=== PATIENT | female | born 1945 | race Caucasian/White ===

== ENCOUNTER 2019-04-24 10:32 | Day surgery (SDC) | payer OTHER, MEDICARE ==
[~2019-04-24] VITALS: Ht 170.2 cm; Wt 67.1 kg
[~2019-04-24 10:32] MED LIST: METO50ER PO; MONT10T PO; PROAIR RESPICL90 MCG INH; SPIRIVA RESPIMAT4 G1 INH; Zestril40 MG PO; Zovirax800 MG PO
[2019-04-24] MEDS ORDERED: INCRUSE ELLI62.5 MCG (11:55)
[2019-04-24] MEDS ORDERED: TRAM50 (11:58)
--- NOTE | 2019-04-24 12:07 | NUR ---
04/24/19 1207 ALEXANDER AGUILAR 1 IV ATTEMPT BY YOSELIN VEIN BLEW 2 IV ATTEMPT BY YOSELIN IN WRIST SUCCESSFUL
== END 2019-04-24 13:41 | disposition home or self-care (01) ==
LOC: ORSCSDS 10:32
PROVIDERS: Internal Medicine Gastroenterology
PROC: 0DJD8ZZ Inspection of Lower Intestinal Tract, Via Natural or Artificial Opening Endoscopic (ICD-10-PCS; principal; 2019-04-24 12:30)
DX: Z12.11 Encounter for screening for malignant neoplasm of colon (principal); Z86.010 Personal history of colon polyps; K57.30 Diverticulosis of large intestine without perforation or abscess without bleeding; K64.8 Other hemorrhoids; K64.4 Residual hemorrhoidal skin tags; F17.210 Nicotine dependence, cigarettes, uncomplicated; I10 Essential (primary) hypertension; J44.9 Chronic obstructive pulmonary disease, unspecified; K74.60 Unspecified cirrhosis of liver; Z79.899 Other long term (current) drug therapy
CPT/HCPCS: J2704; J7120

== ENCOUNTER 2023-03-15 13:12 | Emergency (ER) | payer OTHER ==
[~2023-03-15] VITALS: Ht 170.2 cm; Wt 59.0 kg
[~2023-03-15 13:12] MED LIST changes: +INCRUSE ELLI62.5 MCG; +TRAM50
[2023-03-15 14:04] LABS: BASOPHILS ABSOLUTE AUTO 0.01 K/mm3 (0.00-0.23); BASOPHILS PERCENT AUTO 0 % (0-2); EOSINOPHILS ABSOLUTE AUTO 0.08 K/mm3 (0.00-0.68); EOSINOPHILS PERCENT AUTO 2 % (0-6); Hematocrit 33.2 % (33.0-51.0); Hemoglobin 10.9 g/dL (11.5-16.0); IMMATURE GRAN ABSOLUTE AUTO 0.01 K/mm3 (0.00-0.10); IMMATURE GRAN PERCENT AUTO 0 % (0-1); LYMPHOCYTES ABSOLUTE AUTO 1.33 K/mm3 (0.84-5.20); LYMPHOCYTES PERCENT AUTO 29 % (21-46); MONOCYTES ABSOLUTE AUTO 0.39 K/mm3 (0.16-1.47); MONOCYTES PERCENT AUTO 9 % (4-13); Mean Corpuscular HGB 34.4 pg (26.0-34.0); Mean Corpuscular HGB Conc 32.8 g/dL (31.5-36.5); Mean Corpuscular Volume 105 fL (80-100); Mean Platelet Volume 10.5 fL (9.1-12.4); NEUTROPHILS ABSOLUTE AUTO 2.71 K/mm3 (1.96-9.15); NEUTROPHILS PERCENT AUTO 60 % (41-73); Platelet Count 158 K/mm3 (150-400); RDW Coefficient Variation 12.4 % (11.7-14.2); RDW Standard Deviation 48.5 fL (35.1-46.3); Red Blood Cell Count 3.17 M/mm3 (3.80-5.20); White Blood Cell Count 4.53 K/mm3 (4.00-11.30)
[2023-03-15 14:30] LABS: Albumin, Blood 3.8 g/dL (3.4-5.0); Albumin/Globulin Ratio 0.9 (0.8-1.8); Bilirubin, Total 0.4 mg/dL (0.1-1.0); Bun/Creatinine Ratio 33.6 (12.0-20.0); Calcium, Blood 9.9 mg/dL (8.5-10.1); Creatinine, Blood 1.19 mg/dL (0.40-1.00); Globulin, Blood 4.2 g/dL (2.2-4.0); Potassium, Blood 4.6 mmol/L (3.5-5.5)
[2023-03-15 17:03] VITALS: BP 138/78
[2023-03-15 19:13] LABS: Source, Urine Straight Cath
[2023-03-15 19:21] LABS: Appearance, Urine Clear (Clear); Bilirubin, Urine Neg (Neg); Blood, Urine Neg (Neg); Color, Urine Yellow (P-Yellow); Glucose Qualitative, Urine Neg (Neg); Ketones, Urine Neg (Neg); Leukocyte Esterase, Urine Neg (Neg); Nitrite, Urine Neg (Neg); Protein, Urine Neg (Neg); Specific Gravity, Urine 1.015 (1.003-1.022); Urobilinogen, Urine NORM (Normal)
== END 2023-03-15 20:25 | disposition home or self-care (01) ==
LOC: ER 13:12
PROVIDERS: Emergency Medicine; Physician Assistant
DX: R53.1 Weakness (principal); I12.9 Hypertensive chronic kidney disease with stage 1 through stage 4 chronic kidney disease, or unspecified chronic kidney disease; N18.9 Chronic kidney disease, unspecified; Z79.899 Other long term (current) drug therapy; Z88.8 Allergy status to other drugs, medicaments and biological substances
CPT/HCPCS: 70450; 71046; 80053; 81003; 84484; 85025; 93005; 93010; 99285-25

== ENCOUNTER 2023-03-26 19:27 | Inpatient (IN) | payer OTHER ==
[~2023-03-26] VITALS: Ht 170.2 cm; Wt 60.2 kg
[2023-03-26 20:04] LABS: BASOPHILS PERCENT AUTO 0 % (0-2); EOSINOPHILS PERCENT AUTO 0 % (0-6); Hematocrit 32.3 % (33.0-51.0); Hemoglobin 10.5 g/dL (11.5-16.0); IMMATURE GRAN ABSOLUTE AUTO 0.01 K/mm3 (0.00-0.10); IMMATURE GRAN PERCENT AUTO 0 % (0-1); LYMPHOCYTES ABSOLUTE AUTO 1.06 K/mm3 (0.84-5.20); LYMPHOCYTES PERCENT AUTO 21 % (21-46); MONOCYTES ABSOLUTE AUTO 0.44 K/mm3 (0.16-1.47); MONOCYTES PERCENT AUTO 9 % (4-13); Mean Corpuscular HGB 33.4 pg (26.0-34.0); Mean Corpuscular HGB Conc 32.5 g/dL (31.5-36.5); Mean Corpuscular Volume 103 fL (80-100); Mean Platelet Volume 11.8 fL (9.1-12.4); NEUTROPHILS ABSOLUTE AUTO 3.47 K/mm3 (1.96-9.15); NEUTROPHILS PERCENT AUTO 70 % (41-73); Platelet Count 124 K/mm3 (150-400); RDW Coefficient Variation 12.7 % (11.7-14.2); Red Blood Cell Count 3.14 M/mm3 (3.80-5.20); White Blood Cell Count 4.98 K/mm3 (4.00-11.30)
[2023-03-26 20:17] LABS: Albumin, Blood 3.2 g/dL (3.4-5.0); Albumin/Globulin Ratio 0.9 (0.8-1.8); Bilirubin, Total 0.3 mg/dL (0.1-1.0); Bun/Creatinine Ratio 23.9 (12.0-20.0); Calcium, Blood 8.5 mg/dL (8.5-10.1); Creatinine, Blood 1.8 mg/dL (0.40-1.00); Globulin, Blood 3.7 g/dL (2.2-4.0); Potassium, Blood 3.8 mmol/L (3.5-5.5); Total Protein, Blood 6.9 g/dL (6.4-8.2)
[2023-03-27] VITALS (17 sets, daily range): BP systolic 97–131; BP diastolic 61–100
[2023-03-27 00:29] LABS: Magnesium, Blood 1.4 mg/dL (1.6-2.4)
[2023-03-27 00:31] LABS: Thyroid Stimulating Hormone 1.43 uIU/mL (0.360-4.800)
[2023-03-27 03:41] LABS: BASOPHILS PERCENT AUTO 0 % (0-2); EOSINOPHILS PERCENT AUTO 0 % (0-6); Hematocrit 29.7 % (33.0-51.0); IMMATURE GRAN PERCENT AUTO 0 % (0-1); LYMPHOCYTES ABSOLUTE AUTO 0.91 K/mm3 (0.84-5.20); LYMPHOCYTES PERCENT AUTO 25 % (21-46); MONOCYTES ABSOLUTE AUTO 0.29 K/mm3 (0.16-1.47); MONOCYTES PERCENT AUTO 8 % (4-13); Mean Corpuscular HGB 34.2 pg (26.0-34.0); Mean Corpuscular HGB Conc 33.7 g/dL (31.5-36.5); Mean Corpuscular Volume 102 fL (80-100); Mean Platelet Volume 11.5 fL (9.1-12.4); NEUTROPHILS ABSOLUTE AUTO 2.43 K/mm3 (1.96-9.15); NEUTROPHILS PERCENT AUTO 67 % (41-73); Platelet Count 106 K/mm3 (150-400); RDW Coefficient Variation 12.4 % (11.7-14.2); RDW Standard Deviation 46.3 fL (35.1-46.3); Red Blood Cell Count 2.92 M/mm3 (3.80-5.20); White Blood Cell Count 3.63 K/mm3 (4.00-11.30)
[2023-03-27 03:55] LABS: Anti-Xa UFH, PHA Monitoring <0.10 IU/mL; International Normalized Ratio 1.11; Prothrombin Time Results 11.6 Sec (9.7-11.5)
[2023-03-27 06:05] LABS: Albumin, Blood 3.2 g/dL (3.4-5.0); Albumin/Globulin Ratio 0.8 (0.8-1.8); Bilirubin, Total 0.4 mg/dL (0.1-1.0); Bun/Creatinine Ratio 28.9 (12.0-20.0); Calcium, Blood 8.2 mg/dL (8.5-10.1); Creatinine, Blood 1.42 mg/dL (0.40-1.00); Globulin, Blood 3.9 g/dL (2.2-4.0); Potassium, Blood 3.5 mmol/L (3.5-5.5); Total Protein, Blood 7.1 g/dL (6.4-8.2)
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
--- NOTE | 2023-03-27 10:02 | NUR ---
AM NOTE: PATIENT ALERT AND ORIENTED. NEEDS REINFORCEMENT AT TIMES AND VERY TALKATIVE. DENEIS PAIN BUT DISCUSSES HOW WEAK SHE IS AND JUST NOT FEELING HERSELF. FOLLOWING COMMANDS. PERRLA. DENIES N/T. DENTURES AT BEDSIDE. ABLE TO TURN SELF IN BED. TELE SHOWING AFIB WITH HR 80-120'S CARDIZEM TITRATED OFF AND PO METORPOLOL GIVEN THIS AM. BP STABLE. DENIES CHEST PAIN/PRESSURE. NO EDEMA NOTED. HEPARIN GTT INFUSING PER EMAR. NS INFUSING PER EMAR. ON 3L NASAL CANNULA SATING MID-HIGH 90'S LUNGS SOUNDING CLEAR AND DIM WITH FINE CRACKLES IN BASES. DENIES SOB. OCCASIONAL COUGH. DENIES ABDOMINAL PAIN/NAUSEA. EATING WNL. PUREWICK IN PLACE, ATTENDS IN PLACE. BOWEL TONES PRESENT. CALL LIGHT IN REACH. BED ALARM IN PLACE. DENIES NEEDS AT THIS TIME.
[2023-03-27] MEDS ORDERED: LISI20 PO (10:48)
[2023-03-27] MEDS ORDERED: MONT10T PO (10:49)
[2023-03-27] MEDS ORDERED: LEVSOD25 PO (10:49)
[2023-03-27 14:17] LABS: Adenovirus F 40/41 Not Detected (NOT DETECT); Astrovirus Not Detected (NOT DETECT); Campylobacter Sp Not Detected (NOT DETECT); Cryptosporidium Not Detected (NOT DETECT); Cyclospora Cayetanensis Not Detected (NOT DETECT); E. Coli O157 Not Detected (NOT DETECT); Entamoeba Histolytica Not Detected (NOT DETECT); Enteroaggregative E. coli-EAEC Not Detected (NOT DETECT); Enteropathogenic E. coli-EPEC Not Detected (NOT DETECT); Enterotoxigenic E. coli-ETEC Not Detected (NOT DETECT); Giardia Lamblia Not Detected (NOT DETECT); Norovirus GI/GII Not Detected (NOT DETECT); Plesiomonas Shigelloides Not Detected (NOT DETECT); Rotavirus A Not Detected (NOT DETECT); Salmonella Sp Not Detected (NOT DETECT); Sapovirus Not Detected (NOT DETECT); Shiga Toxin-prod E. coli-STEC Not Detected (NOT DETECT); Shigella/Enteroin E. coli-EIEC Not Detected (NOT DETECT); Vibrio Cholerae Not Detected (NOT DETECT); Vibrio Sp Not Detected (NOT DETECT); Yersinia Enterocolitica Not Detected (NOT DETECT)
--- NOTE | 2023-03-27 16:15 | NUR ---
DAUGHTER IN LAW BENITEZ CALLED EARLIER THIS AM. MED REC UPDATED AND DR. HAWKINS NOTIFIED. SON AMARJIT AND SARI IN TO VISIT THIS AFTERNOON. THIS RN PROVIDED UPDATED. PATIENT ON 1L NASAL CANNULA AT THIS TIME SATING MID 90'S. BP STABLE. REMAINS IN AFIB WITH HR 70-110'S. NORMAL SALINE CONTINUES TO INFUSE PER EMAR. PATIENT HAS VERY POOR APPPEATITE. DRINKING SMALL AMOUNTS. 600ML URINE OUTPUT FROM PUREWICK AT THIS TIME. PATIENT STATES "I AM STARTING TO FEEL ALOT BETTER". OVERALL VERY WEAK. DENIES NEEDS AT THIS TIME. PATIENT RESTING IN BED LISTENING TO MUSIC.
--- NOTE | 2023-03-27 16:33 | NUR ---
PATIENT HR SUSTAINING 110-130'S. DENIES SYMPTOMS. BP STABLE READIN 130/95(106). DR. HAWKINS CALLED AND UPDATED. ORDERS TO GIVE 100MG PO METOPROLOL TARTRATE NOW AND HOLD 2100 DOSE OF METOPROLOL TARTRATE. ORDERS IN PLACE.
--- NOTE | 2023-03-27 21:30 | NUR ---
UPDATE: THIS RN NOTIFIED BY TELE (JAYNE) THAT PT's HR HAS BEEN SUSTAINING IN THE 120-130 RANGE AND INTERMITTENLY TOUCHING 150'S. THIS RN TO BED SIDE FOR FULL SET OF VITALS, PT DENIES PALPITATIONS, DIZZINESS, OR SOB. SBP RANGED IN THE 110-120'S. SPOKE WITH DR. YUAN AT [facility] WITH ORDERS TO RESUME CARDIAZEM gtt AT 5MG/HR THEN TO TITRATE HAS NEEDED. SEE EMAR FOR ADMINISTRATION DETAILS.
[2023-03-28] VITALS (12 sets, daily range): BP systolic 108–124; BP diastolic 76–98
[2023-03-28 04:29] LABS: Hematocrit 26.8 % (33.0-51.0); Hemoglobin 9.1 g/dL (11.5-16.0); Mean Corpuscular HGB 33.8 pg (26.0-34.0); Mean Corpuscular Volume 100 fL (80-100); Mean Platelet Volume 11.6 fL (9.1-12.4); Platelet Count 107 K/mm3 (150-400); RDW Coefficient Variation 12.5 % (11.7-14.2); RDW Standard Deviation 45.6 fL (35.1-46.3); Red Blood Cell Count 2.69 M/mm3 (3.80-5.20); White Blood Cell Count 1.82 K/mm3 (4.00-11.30)
[2023-03-28 04:50] LABS: Bun/Creatinine Ratio 30.7 (12.0-20.0); Creatinine, Blood 0.91 mg/dL (0.40-1.00); Potassium, Blood 3.8 mmol/L (3.5-5.5)
--- NOTE | 2023-03-28 05:26 | NUR ---
SHIFT SUMMARY A/Ox3-4 AND COOPERATIVE WITH CARE. ABLE TO MAKE MOST OF HER NEEDS KNOWN AND ABLE TO CALL APPROPRIATELY. CARDIAC, REMAINS IN AFIB RHYTHM WITH HR RANGING 90-110's. EARLY IN THE SHIFT, HR WAS SUSTAINING 120-140's, BUT PT DENIES ANY SYMPTOMS OF DIZZINESS, SOB, OR PALPITATIONS. DR. YUAN NOTIFIED WITH NEW ORDERS GIVEN. SEE UPDATE NOTE FOR DETAILS. CARDIZEM gtt HAS BEEN RUNNING INTERMITTENT T/O THE NIGHT, SEE EMASR FOR DETAILS. SBP HAS BEEN STABLE RANGING 90-120's WITH NO COMPLAINTS OF CP OR PRESSURE. RESPIRATORY, MAINTAINS SPO2 >94% ON RA. DENIES SOB WHILE AT REST, BUT DYSPNEA NOTED WITH MINIMAL EXERTION. GI/, PUREWICK IN PLACE AND DRAINING YELLOW URINE TO SUCTION. NO BM FOR THIS SHIFT. CONTINUES TO BE VERY WEAK T/O, BUT DOES REPORT "I'M GETTING MY STRENGTH BACK". Q2HR REPOSITIONING PERFORMED TO KEEP OFF OF BONY PROMINENCES. ASSESSED PT FOR RISKS OF ANY IGNITION SOURCES WELL BEHAVIORS FOR INCREASED RISKS OF FIRE DANGER. PT EDUCATED ON COMMON SOURCES OF IGNITION WELL NEED TO KEEP A SAFE ENVIRONMENT. PT VOICED UNDERSTANDING. NO NEW ORDERS AT THIS TIME, WILL REPORT TO ONCOMING RN. SHERRIE ACOSTA OF THIS NOTE.
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
--- NOTE | 2023-03-28 14:31 | NUR ---
APS RESPONDED TO MESSAGE AND INFORMATION WAS RELAYED TO THEM REGARDING PT'S STATEMENTS. PRIMARY RN AWARE WELL.
--- NOTE | 2023-03-28 17:39 | NUR ---
Shift Summary Pt alert, oriented x4; calm and cooperative with care, Pt on bedrest, q2 turn. Pt reporting pain "everywhere" medicated with tylenol with positive results. Spo2 >90% on ra. Tele afib 120-130 this am, medciated with scheduled metoprolol, down to 90-110's, but trending back up to 120-130 this evening, notified , new order for one time dose. No other acute chagnes noted. Will continue to monitor.
[2023-03-29] VITALS (19 sets, daily range): BP systolic 94–150; BP diastolic 56–97
--- NOTE | 2023-03-29 02:16 | NUR ---
UPDATE: ~2340 YESTERDAY PM, PT'S HR NOTED TO BE CLIMBING BACK INTO THE 120-130'S AND SUSTAINING FOR SOME TIME. PT DENIES ANY PALPITATIONS, SOB, OR DIZZINESS. SBP WAS STABLE RANGING 100-120'S. DR. YUAN NOTIFIED OF OF CHANGE IN CONDITION WITH NEW ORDERS TO ADMINISTER LOPRESSOR 50MG PO. DOSE GIVEN ORDERED FOR MINIMAL EFFECT. HR TRENDED DOWN INTO THE 110-120'S UNITL 0115 THIS AM WHEN HR REVERTED BACK INTO THE 120-130'S AND OCCASIONALLY TOUCHING 140'S. AGAIN PT DENIED ANY SYMPTOMS. DR. YUAN NOTIFIED AGAIN WITH NEW ORDERS TO RESUME CARDIAZEM gtt @5MG/HR. THEN TO TITRATE PER EMAR ORDERS.
--- NOTE | 2023-03-29 04:58 | NUR ---
SHIFT SUMMARY A/Ox3-4 AND COOPERATIVE WITH CARE. ABLE TO MAKE MOST OF HER NEEDS KNOWN AND ABLE TO CALL APPROPRIATELY. VERY TALKATIVE AND PLEASANT WITH CARE. CARDIAC, REMAINS IN AFIB RHYTHM WITH HR RANGING 80-110's. TOWARDS THE START OF THE SHIFT, PT's HR WAS SUSTAINING 120-140's. PT CONTINUES TO DENY ANY SYMPTOMS OF DIZZINESS, SOB, OR PALPITATIONS. NIGHT RESIDENT DR. YUAN NOTIFIED WITH NEW ORDERS GIVEN. SEE THIS SHIFT's UPDATE NOTE FOR DETAILS. CARDIZE gtt HAS BEEN RUNNING INTERMITTENT T/O THE NIGHT, SEE EMAR FOR ADMINISTRATION DETAILS. SBP HAS BEEN STABLE RANGING 100-110 S WITH NO COMPLAINTS OF CP OR PRESSURE. RESPIRATORY, MAINTAINS SPO2 >94% ON RA. DENIES SOB WHILE AT REST, BUT CONTINUES TO REPORT DYSPNEA WITH MINIMAL EXERTION. GI/, PUREWICK IN PLACE AND DRAINING YELLOW URINE TO SUCTION. AGAIN NO BM FOR THIS SHIFT. CONTINUES TO BE VERY WEAK T/O, BUT HAS BEEN ABLE TO MOVE AROUND MORE IN BED WITHOUT ASSISTANCE FROM STAFF. Q2HR REPOSITIONING PERFORMED TO KEEP PRESSURE OFF OF BONY PROMINENCES. ASSESSED PT FOR RISKS OF ANY IGNITION SOURCES WELL BEHAVIORS FOR INCREASED RISKS OF FIRE DANGER. PT EDUCATED ON COMMON SOURCES OF IGNITION WELL NEED TO KEEP A SAFE ENVIRONMENT. PT VOICED UNDERSTANDING. NO NEW ORDERS AT THIS TIME, WILL REPORT TO ONCOMING RN. SHERRIE ACOSTA OF THIS NOTE.
--- NOTE | 2023-03-29 09:07 | NUR ---
ASSUMPTION OF CARE ASSUMED CARE AT APPROX 0700. PT AOX3-4, PLEASANT, COOPERATIVE W/ CARE AND RECEPTIVE TO EDUCATION. REPORTS FEELING DROWSY THIS MORNING, EASILY AROUSABLE TO VERBAL STIMULI. VSS. BP STABLE, HR 90'S-120'S. INTERMITTENT EPISODES OF INCREASED HR, 130'S-140'S. NONSUSTAINING, PT ASYMPTOMATIC. CARDIZEM GTT STOPPED EARLIER THIS MORNING. PO METOPROLOL ADMINISTERED PER EMAR. ECHOCARDIOGRAM TO BE COMPLETED TODAY. WILL CONTINUE TO MONITOR. CURRENTLY ON ROOM AIR, SATS >95%. PUREWICK IN PLACE, DRAINING DIONI URINE TO SUCTION. ATTENDS IN PLACE, IS C/D/I. PT REPORTS AMBULATING INFREQUENTLY AT HOME W/ FWW, W/ INCREASED WEAKNESS. IS CURRENTLY BEDREST, Q2 REPOSITIONING IN PLACE. PT REPORTS DECREASED APPETITE THIS MORNING, DECLINED BREAKFAST TRAY. CALL LIGHT IN REACH.
--- NOTE | 2023-03-29 11:52 | NUR ---
UPDATE PT CURRENTLY SITTING IN CHAIR AFTER WORKING W/ THERAPY. HR INCREASE TO 150'S, NONSUSTAINING. CURRENTLY 130'S-140'S. PT ASYMPTOMATIC. CONTACTED . TO PUT IN ORDER FOR RATE CONTROL.
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
[2023-03-30] VITALS (8 sets, daily range): BP systolic 105–123; BP diastolic 69–92
--- NOTE | 2023-03-30 00:36 | NUR ---
UPDATE: EARLY IN THE SHIFT ~0, PT'S HR NOTED TO BE SUSTAINING IN THE 120-130 RANGE WITH INTERMITTENT JUMPS TO 140'S AND EVEN 150'S. PT CONTINUES TO BE ASYMPTOMATIC DENYING PAPITATIONS, CP, OR DIZZINESSS. NIGHT RESIDENT DR. YUAN NOTIFIED TO WHICH HE CAME TO BEDSIDE TO EVALUATE PT. VERBAL ORDERS GIVEN TO RESTART CARDIZEM gtt @ 5MG/HR AND THEN TITRATE VIA EMAR ORDERS. SEE EMAR FOR ADMINISTRATION DETAILS. PT RESPONDED WELL TO MEDICATION WITH HR SOON RETURNING IN THE 80-110 RANGE. CARDIZEM gtt TITRATED OFF PER EMAR ORDERS.
--- NOTE | 2023-03-30 05:21 | NUR ---
SHIFT SUMMARY A/Ox3-4 AND COOPERATIVE WITH CARE. ABLE TO MAKE MOST OF HER NEEDS KNOWN AND ABLE TO CALL APPROPRIATELY. VERY TALKATIVE AND PLEASANT WITH CARE. CARDIAC, REMAINS IN AFIB RHYTHM WITH HR RANGING 90-120's. ~2230 YESTERDAY PM PT's HR STARTED TO SUSTAIN IN THE 120-140's AND OCCASIONALLY TOUCHING THE 150 ARNULFO. PT CONTINUES TO DENY ANY SYMPTOMS OF DIZZINESS, SOB, OR PALPITATIONS. NIGHT RESIDENT DR. YUAN NOTIFIED WITH NEW ORDERS GIVEN. SEE THIS SHIFT's UPDATE NOTE FOR DETAILS. CARDIZEM gtt WAS STARTED TO ASSIST WITH RATE CONTROL PER MD ORDERS, BUT WAS ABLE TO BE TITRATED OFF. SEE EMAR FOR ADMINISTRATION DETAILS. SBP HAS BEEN STABLE RANGING 110-120 S WITH NO COMPLAINTS OF CP OR PRESSURE. RESPIRATORY, MAINTAINS SPO2 >94% ON RA. PER DAYSHIFT, WAS ABLE TO GET UP INTO CHAIR FOR SOME TIME WITHOUT BECOMING TOO SOB. GI/, PUREWICK IN PLACE AND DRAINING YELLOW URINE TO SUCTION. NO BM FOR THIS SHIFT AND REPORTS I DON'T KNOW WHEN THE LAST TIME I'VE HAD A BM . PT/OT ON BOARD TO HELP WITH DECONDITIONING, CONTINUED Q2HR REPOSITIONING PERFORMED TO KEEP PRESSURE OFF OF BONY PROMINENCES. ASSESSED PT FOR RISKS OF ANY IGNITION SOURCES WELL BEHAVIORS FOR INCREASED RISKS OF FIRE DANGER. PT EDUCATED ON COMMON SOURCES OF IGNITION WELL NEED TO KEEP A SAFE ENVIRONMENT. PT VOICED UNDERSTANDING. NO NEW ORDERS AT THIS TIME, WILL REPORT TO ONCOMING RN. SHERRIE ACOSTA OF THIS NOTE.
--- NOTE | 2023-03-30 08:39 | NUR ---
ASSUMPTION OF CARE ASSUMED CARE AT APPROX 0700. PT AOX3-4, FORGETFUL AT TIMES. PLEASANT AND TALKATIVE. COOPERATIVE W/ CARE AND RECEPTIVE TO EDUCATION AT TIMES. VSS. BP STABLE. TELEMETRY SHOWING AFIB 90'S-110'S. INTERMITTENT EPISODES OF INCREASED HR, 120'S-130'S, ESPECIALLY W/ MOVEMENT. PT MOSTLY ASYMPTOMATIC. NO REPORT OF CHEST PAIN/PRESSURE. REPORTS INCREASED WEAKNESS T/O THIS ADMISSION. INCREASED DOSE OF PO METOPROLOL GIVEN PER EMAR. WILL CONTINUE TO MONITOR T/O SHIFT. ON ROOM AIR, SATS >92%. REPORTS 4/10 CONSTANT COCCYX PAIN THIS MORNING, MOBILITY ENCOURAGED TOLERATED, PT DECLINED SITTING IN A CHAIR THIS MORNING FOR BREAKFAST. FREQUENT REPOSITIONING IN PLACE. WILL MANAGE PER EMAR PRN. PHYSICAL THERAPY AND OCCUPATIONAL THERAPY ON CASE, 1P ASSIST FWW AND GB TO CHAIR. INCONTINENT OF URINE, PUREWICK AND ATTENDS IN PLACE. NO BM, DOCUSATE ADMINISTERED PER EMAR THIS MORNING. PT CURRENTLY RECEIVING A BEDBATH. CALL LIGHT IN REACH.
--- NOTE | 2023-03-30 14:19 | NUR ---
THIS RN NOTIFIED BY STRAWHAT BLOCKING OPERATOR THAT THE PT'S HR IS TRENDING HIGHER 110'S-130'S, INCREASE HIGH THE 150'S INTERMITTENTLY. PT ASYMPTOMATIC OF INCREASE, IS CURRENTLY RESTING IN BED. CURRENT BP 105/69, MAP OF 79. MD [place] NOTIFIED OF TREND, TO PUT IN NEW ORDERS.
--- NOTE | 2023-03-30 16:31 | NUR ---
SHIFT SUMMARY NO ACUTE CHANGES SINCE ASSUMPTION OF CARE. PT REMAINED AOX3-4. VSS. HR BEGAN TRENDING UP, 110'S-120'S, INTERMITTENT EPISODES OF INCREASE TO 140'S-150'S. MD NOTIFIED. ORDER FOR PO CARDIZEM PLACED BY . ADMINISTERED PER EMAR. TELEMETRY CURRENTLY SHOWING AFIB 90'S-110'S. BP SOFT, SBP 100'S-110'S. MAP GREATER THAN 65. PT ASYMPTOMATIC. REMAINS ON RM AIR, SATS >90%. PT WORKED W/ PHYSICAL THERAPY THIS MORNING, 1P ASSIST W/ FWW. TOLERATED SITTING IN CHAIR FOR ABOUT AN HOUR. VOIDING, INCONTINENT. PUREWICK AND ATTENDS IN PLACE, CHANGED PRN TO KEEP C/D/I. NO BM THIS SHIFT. PT IS CURRENTLY RESTING COMFORTABLY IN BED. CALL LIGHT IN REACH. WILL REPORT TO ONCOMING RN.
--- NOTE | 2023-03-30 17:09 | NUR ---
UPDATE THIS RN NOTIFIED THAT THE PT'S HR IS BEGINNING TO TREND DOWN, HR CURRENTLY 70'S-80'S.
--- NOTE | 2023-03-30 20:48 | NUR ---
ASSUMPTION OF CASRE PATIENT IS ALERT AND ORIENTED X 3-4. ABLE TO MAKE NEEDS KNOWN, IS TALKING IN FULL SENTANCES FREQUENTLY WITHOUT SOB OR INCREASED WOB. HR IS IN THE 80-110 AT THIS TIME, 2100 METOPROLOL JUST GIVEN. PATIENT IS COOPERATIVE WITH CARE, DENIES CHEST PAIN PRESSURE OR SOB AT REST AT THIS TIME. VSS. NO CONCERNS NOTED AT THIS TIME.
[2023-03-31] VITALS (10 sets, daily range): BP systolic 97–124; BP diastolic 70–98
--- NOTE | 2023-03-31 03:27 | NUR ---
EOS: VSS PATIENT NEEDED 1 X DOSE OF 30MG CARDIZEM DUE TO INCREASING ME UP TO 150'S AND DECREASING BP. PATIENT BP IMPROVED WITH CONTROLLED RATE CURRENLTY 75 ON RA SPO2 >95%. PATIENT COOPERATIVE, PLEASANT, A/O X3 FOLLOWS COMMANDS APPROPRIATELY. AFEBRILE. NO CONCERNS FROM THIS RN.
--- NOTE | 2023-03-31 09:23 | NUR ---
BLOOD PRESSURE TAKEN, READING 86/73 (79). DR. HAWKINS CALLED BY THIS RN, PLAN FOR 25O NS BOLUS AND TO RECHECK BLOOD PRESSURE IN ONE HOUR. WILL UPDATE DR. HAWKINS POST BOLUS.
--- NOTE | 2023-03-31 10:08 | NUR ---
DR. HAWKINS CALLED TO UPDATE POST 250 ML NORMAL SALINE BOLUS. BP 104/78 (86). HR 60-70'S. ORDERS TO CHANGE PO METOPROLOL SUCCINATE TO 100MG BID AND GIVE THIS AM. ORDERS IN PLACE.
--- NOTE | 2023-03-31 12:35 | NUR ---
SPOKE WITH DAUGHTER IN LAW EMMANUEL [phone] AND PROVIDED UPDATE. PATIENT SITTING UP IN CHAIR EATING LUNCH AT THIS TIME.
[2023-03-31 13:21] LABS: Hematocrit 31.6 % (33.0-51.0); Hemoglobin 10.6 g/dL (11.5-16.0); Mean Corpuscular HGB 34.2 pg (26.0-34.0); Mean Corpuscular HGB Conc 33.5 g/dL (31.5-36.5); Mean Corpuscular Volume 102 fL (80-100); Mean Platelet Volume 12.2 fL (9.1-12.4); NRBC ABSOLUTE 0.02 K/mm3 (0.00-0.02); NRBC Auto 0.2 /100 WBC (0.0-0.2); Platelet Count 198 K/mm3 (150-400); RDW Standard Deviation 48.3 fL (35.1-46.3); White Blood Cell Count 10.47 K/mm3 (4.00-11.30)
[2023-03-31 13:40] LABS: Bun/Creatinine Ratio 39.8 (12.0-20.0); Calcium, Blood 8.5 mg/dL (8.5-10.1); Creatinine, Blood 0.88 mg/dL (0.40-1.00); Potassium, Blood 4.2 mmol/L (3.5-5.5)
--- NOTE | 2023-03-31 17:57 | NUR ---
SHIFT SUMMARY: NO ACUTE CHANGES THIS SHIFT. PATIENT HR REMAINS CONTROLLED WITH PO CARDIZEM. BP REMAINS STABLE. CONTINUES TO DENY CHEST PRESSURE/PAIN/PALPITATIONS. UP WITH PT/OT. FAMILY UPDATED TODAY VIA TELEPHONE. EATING WNL. DENIES OVERALL PAIN. Q2 TURNING AND NEEDED. DENIES NEEDS AT THIS TIME. CALL LIGHT IN REACH.
[2023-04-01] VITALS (8 sets, daily range): BP systolic 90–111; BP diastolic 61–83
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
--- NOTE | 2023-04-01 17:47 | NUR ---
NO ACUTE CHANGES T/O THE SHIFT, PT'S HR REMAINS 110-130s WITH DILT AND METOP INCREASED TODAY. BPs HAVE REMAINED 90-110 SYSTOLIC. PT GIVEN HEATING PAD FOR BACK PAIN, HAS DECLINED TYLENOL ALL DAY. PT IS ABLE TO USE CALL LIGHT, CALL LIGHT IN REACH. WILL CONTINUE TO MONITOR AND GIVE REPORT TO ONCOMING SHIFT RN.
[2023-04-02 04:04] VITALS: BP 115/80
--- NOTE | 2023-04-02 04:25 | NUR ---
SHIFT SUMMARY PT A&Ox4, CALLS AND COMMUNICATES NEEDS APPROPRIATELY. HAS ODD STATEMENTS AND IS SLIGHTLY FORGETFUL AT TIMES. BP STABLE, AFIB 80-110's AT REST, BRIEFLY 130's WITH ACTIVITY, DENIES CP/PRESSURE. SpO2> 92% RA, DENIES SOB. SBA TO BSC. PT HAD BOTH CONTINENT AND INCONTINENT EPISODES OF BOTH URINE AND BOWEL. ATTENDS AND PUREWICK IN PLACE. Q2 TURNS PROVIDED. NO OTHER EVENTS, WILL REPORT TO ONCOMING RN.
[2023-04-02 05:45] VITALS: BP 141/95
[2023-04-02 09:41] VITALS: BP 113/78
[2023-04-02 11:47] VITALS: BP 103/72
--- NOTE | 2023-04-02 12:12 | NUR ---
ASSUMED CARE OF PT AT 0700 THIS AM. PER REPORT, BETTER HR CONTROL OVERNIGHT. NO ACUTE EVENTS. PT AWAKE AND ALERT THIS AM, NO COMPLAINTS. DR CURIEL AT BEDSIDE, DISCUSSED PLAN OF CARE. PT IS NOW MEDICAL TELE STATUS. UPDATED FAMILY OVER THE PHONE THIS AM. PLAN IS FOR PT TO DC TO REHAB PENDING BED AVAILIBILITY/INSURANCE AUTH. PT IS ABLE TO USE CALL LIGHT FOR NEEDS, CALL LIGHT IN REACH. TM.
--- NOTE | 2023-04-02 18:12 | NUR ---
SHIFT SUMMARY PATIENT TRANSFERED UP FROM PCU VIA BED. PATIENT ALERT AND INTERACTIVE. EASILY IRRITABLE ABOUT SITUATION BUT COOPERATIVE WITH CARE. PATIENT DENIES ANY CHEST PAIN. OCCASIONAL MOIST COUGH. PATIENT IS AWARE THAT PLAN IS FOR HER TO GO TO REHAB WHEN AVAILABLE.
[2023-04-02 20:49] VITALS: BP 111/81
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
[2023-04-03 04:48] VITALS: BP 111/81
[2023-04-03 05:16] LABS: BASOPHILS ABSOLUTE AUTO 0.01 K/mm3 (0.00-0.23); BASOPHILS PERCENT AUTO 0 % (0-2); EOSINOPHILS ABSOLUTE AUTO 0.15 K/mm3 (0.00-0.68); EOSINOPHILS PERCENT AUTO 2 % (0-6); Hematocrit 31.1 % (33.0-51.0); Hemoglobin 10.4 g/dL (11.5-16.0); IMMATURE GRAN ABSOLUTE AUTO 0.05 K/mm3 (0.00-0.10); IMMATURE GRAN PERCENT AUTO 1 % (0-1); LYMPHOCYTES ABSOLUTE AUTO 1.05 K/mm3 (0.84-5.20); LYMPHOCYTES PERCENT AUTO 14 % (21-46); MONOCYTES ABSOLUTE AUTO 0.71 K/mm3 (0.16-1.47); MONOCYTES PERCENT AUTO 10 % (4-13); Mean Corpuscular HGB 34.1 pg (26.0-34.0); Mean Corpuscular HGB Conc 33.4 g/dL (31.5-36.5); Mean Corpuscular Volume 102 fL (80-100); Mean Platelet Volume 11.9 fL (9.1-12.4); NEUTROPHILS ABSOLUTE AUTO 5.51 K/mm3 (1.96-9.15); NEUTROPHILS PERCENT AUTO 74 % (41-73); Platelet Count 183 K/mm3 (150-400); RDW Coefficient Variation 13.2 % (11.7-14.2); RDW Standard Deviation 48.9 fL (35.1-46.3); Red Blood Cell Count 3.05 M/mm3 (3.80-5.20); White Blood Cell Count 7.48 K/mm3 (4.00-11.30)
[2023-04-03 05:55] LABS: Calcium, Blood 8.8 mg/dL (8.5-10.1); Creatinine, Blood 0.93 mg/dL (0.40-1.00); Magnesium, Blood 1.9 mg/dL (1.6-2.4)
[2023-04-03 08:31] VITALS: BP 115/84
[2023-04-03 16:29] VITALS: BP 110/86
--- NOTE | 2023-04-03 18:30 | NUR ---
SHIFT SUMMARY PATIENT ALERT AND INTERACTIVE WITH CARE. PATIENT AWARE THAT SHE IS GOING TO REHAB WHEN BED AVAILABLE. HR CONTINUES TO BE IRREGULAR, RANGING FROM 100'S TO 150. PROVIDER AWARE OF HR. PATIENT MEDICATED WITH IV METOPROLOL WITH NO CHANGE. PATIENT TAKING ORAL MEDICATIONS FOR HR. FAMILY IN TO SEE PATIENT. SON HERE FROM OUT OF TOWN TO TRY TO HELP WITH NURSING HOME PLAN. PATIENT DENIES ANY CHEST PAIN OR SHORTNESS OF BREATH WITH HR. VSS
[2023-04-03 19:33] VITALS: BP 97/76
[2023-04-04] MEDS ORDERED: SPIRIVA RESPIMAT4 G2 INH (00:19)
[2023-04-04] MEDS ORDERED: LISINOPRIL-HCT1 EACH PO (00:20)
[2023-04-04] MEDS ORDERED: NEURONTIN300 MG PO (00:20)
[2023-04-04 00:38] VITALS: BP 108/69
--- NOTE | 2023-04-04 01:09 | NUR ---
assumed care OF PT. A/O VSS C/O CHRONIC SHOULDER AND HIP PAIN. PT MEDICATED PER AUG. 2099 MEDS GIVEN LATE AT 2230, INITALLY TOPOROL MEDS HELD FOR SOFT BP AND LOW HEART RATE BUT AT MID NIGHT FORMATION FRACTURING OPERATOR NOTIFIED THAT HEART RATE WAS IN THE 130S SO TOPOROL WAS GIVEN AND CARDIZEM WILL BE GIVEN LATE. BP WNL AND O2 97 RA, PT HAS NO S/S OF DISTRESS OR COMPLICATIONS
[2023-04-04 02:44] VITALS: BP 103/85
[2023-04-04 08:25] VITALS: BP 108/90
--- NOTE | 2023-04-04 16:29 | NUR ---
SHIFT SUMMARY: PT A&O X4. OCCASIONALLY FORGETFUL OF HOW TO USE CALL LIGHT AND ROOM TELEPHONE. PT PLEASANT AND COOPERATIVE WITH CARE. RECEIVED SEVERAL CALLS FROM TELE THIS SHIFT STATING PULSE HAS BEEN TRENDING IN 150'S-160'S. CARDIAC MEDICATIONS PROVIDED. PT HAS CHRONIC SHOULDER AND TAILBONE PAIN. SPOKE WITH PT SON FOR AN UPDATE THIS SHIFT. PLAN FOR PT TO RECEIVE COVID SWAB TOMORROW AND IF NEGATIVE TRANSFER TO SNF. CALL LIGHT IN REACH. BED IN LOWEST POSITION. WILL CONTINUE TO MONITOR.
[2023-04-04 16:39] VITALS: BP 100/79
[2023-04-04 20:42] VITALS: BP 97/77
[2023-04-05 04:37] VITALS: BP 118/89
[2023-04-05 05:32] LABS: BASOPHILS PERCENT AUTO 0 % (0-2); EOSINOPHILS ABSOLUTE AUTO 0.18 K/mm3 (0.00-0.68); EOSINOPHILS PERCENT AUTO 3 % (0-6); Hematocrit 30.3 % (33.0-51.0); IMMATURE GRAN ABSOLUTE AUTO 0.02 K/mm3 (0.00-0.10); IMMATURE GRAN PERCENT AUTO 0 % (0-1); LYMPHOCYTES ABSOLUTE AUTO 1.17 K/mm3 (0.84-5.20); LYMPHOCYTES PERCENT AUTO 17 % (21-46); MONOCYTES ABSOLUTE AUTO 0.82 K/mm3 (0.16-1.47); MONOCYTES PERCENT AUTO 12 % (4-13); Mean Corpuscular HGB 33.9 pg (26.0-34.0); Mean Corpuscular Volume 103 fL (80-100); Mean Platelet Volume 11.8 fL (9.1-12.4); NEUTROPHILS ABSOLUTE AUTO 4.76 K/mm3 (1.96-9.15); NEUTROPHILS PERCENT AUTO 69 % (41-73); Platelet Count 181 K/mm3 (150-400); RDW Coefficient Variation 13.6 % (11.7-14.2); RDW Standard Deviation 50.4 fL (35.1-46.3); Red Blood Cell Count 2.95 M/mm3 (3.80-5.20); White Blood Cell Count 6.95 K/mm3 (4.00-11.30)
[2023-04-05 06:01] LABS: Bun/Creatinine Ratio 26.3 (12.0-20.0); Calcium, Blood 8.7 mg/dL (8.5-10.1); Creatinine, Blood 0.91 mg/dL (0.40-1.00); Potassium, Blood 4.3 mmol/L (3.5-5.5)
--- NOTE | 2023-04-05 06:25 | NUR ---
SHIFT SUMMARY PT IS A&O3, UP WITH 1 TO BSC, RA, PRN PAIN MEDICATION GIVEN X2 PER MAR FOR UPPER BACK AND SHOULDER PAIN, NO ACUTE OVERNIGHT EVENTS CONTINUE POC
[2023-04-05 07:45] VITALS: BP 92/78
[2023-04-05 14:51] LABS: SARS-Cov-2 (COVID-19) PCR, MMC POSITIVE (NEGATIVE)
[2023-04-05 15:13] VITALS: BP 116/86
--- NOTE | 2023-04-05 18:20 | NUR ---
SUMMARY- NO ACUTE EVENTS/CHANGES THIS SHIFT. PT CALM AND COOPERATIVE. PCR + AGAIN THIS SHIFT. SBA. AAOX3-4.
[2023-04-05 19:46] VITALS: BP 116/102
[2023-04-06] VITALS (7 sets, daily range): BP systolic 103–120; BP diastolic 69–94
--- NOTE | 2023-04-06 04:53 | NUR ---
SHIFT SUMMARY PT IS A&O4, UP WITH 1 TO THE BSC, RA, PRN METOPROLOL GIVEN PER AUG X1 FOR HEART RATE IN THE 140'S, PRN PAIN MEDICATION GIVEN X2 PER MAR FOR BACK AND SHOULDER PAIN, NO ACUTE OVERNIGHT EVENTS CONTINUE POC
--- NOTE | 2023-04-06 17:51 | NUR ---
SHIFT SUMMARY PT A&OX4, TOLERATING PO, DENIES DIARRHEA, PUREWICK IN USE, RA, UP IN CHAIR FOR MEALS AND SAT AT THE EDGE OF THE BED T/O THIS SHIFT. PT HR ELEVATED T/O SHIFT. AWARE AND EMAR UPDATED, PT MEDICATED PER EMAR. PT DENIES CHEST PAIN, PRESSURE, AND OR SOB. CALL LIGHT IS WITHIN REACH AND ABLE TO MAKE NEEDS KNOWN.
[2023-04-07] VITALS (7 sets, daily range): BP systolic 86–118; BP diastolic 63–103
--- NOTE | 2023-04-07 05:59 | NUR ---
PT SLEPT FINE THROUGHOUT THE EVENING, CALLED A FEW TIMES CONCERNING BREATHING TREATMENTS, THAT I HAVD TO ORDER. RT IN TO SPEAK WITH PT. PT RELAXED AND COMFORTABLE BREATHING WELL PURWIX IN PLACE
[2023-04-07 14:44] LABS: Source, Urine Clean Catch
[2023-04-07 14:57] LABS: Appearance, Urine Clear (Clear); Bilirubin, Urine Neg (Neg); Blood, Urine Neg (Neg); Color, Urine Yellow (P-Yellow); Glucose Qualitative, Urine Neg (Neg); Ketones, Urine Neg (Neg); Leukocyte Esterase, Urine Neg (Neg); Nitrite, Urine Neg (Neg); Protein, Urine Neg (Neg); Urobilinogen, Urine 3+ (Normal)
--- NOTE | 2023-04-07 17:15 | NUR ---
SHIFT SUMMARY PT A&OX4, CONT LOW/SOFT BP, STABLE, NOTIFIED, AND EMAR UPDATED. PLAN FOR DISCHARGE TOMORROW TO SNF. CALL LIGHT WITHIN REACH AND PT ABLE TO MAKE NEEDS KNOWN.
[2023-04-08] VITALS (10 sets, daily range): BP systolic 88–119; BP diastolic 65–90
--- NOTE | 2023-04-08 00:27 | NUR ---
PHYSICIAN COMMUNICATION CONTACTED BROADBAND ENGINEER PHYSICIAN DR HAWKINS TO NOTIFY HIM THAT THE PATIENT HAD A DOSE OF 60 MG PO CARDIZEM SCHEDULED BUT THAT THE PATIENT'S BLOOD PRESSURE WAS 88/65 WITH A MAP OF 74. ALSO INFORMED HIM THAT THE PATIENT'S 2100 METOPROLOL HAD BEEN HELD FOR BLOOD PRESSURE OF 86/64. DR HAWKINS SAID TO GIVEN THE METOPROLOL NOW, DECREASE THE CARDIZEM TO 30 MG, AND GIVE A 500 ML BOLUS OF NORMAL SALINE AT A RATE OF 250 ML/HR.
[2023-04-08 05:45] LABS: BASOPHILS ABSOLUTE AUTO 0.01 K/mm3 (0.00-0.23); BASOPHILS PERCENT AUTO 0 % (0-2); EOSINOPHILS ABSOLUTE AUTO 0.11 K/mm3 (0.00-0.68); EOSINOPHILS PERCENT AUTO 2 % (0-6); Hematocrit 27.2 % (33.0-51.0); Hemoglobin 8.9 g/dL (11.5-16.0); IMMATURE GRAN ABSOLUTE AUTO 0.01 K/mm3 (0.00-0.10); IMMATURE GRAN PERCENT AUTO 0 % (0-1); LYMPHOCYTES PERCENT AUTO 21 % (21-46); MONOCYTES ABSOLUTE AUTO 0.52 K/mm3 (0.16-1.47); MONOCYTES PERCENT AUTO 10 % (4-13); Mean Corpuscular HGB 34.1 pg (26.0-34.0); Mean Corpuscular HGB Conc 32.7 g/dL (31.5-36.5); Mean Corpuscular Volume 104 fL (80-100); Mean Platelet Volume 11.3 fL (9.1-12.4); NEUTROPHILS ABSOLUTE AUTO 3.42 K/mm3 (1.96-9.15); NEUTROPHILS PERCENT AUTO 66 % (41-73); Platelet Count 125 K/mm3 (150-400); RDW Coefficient Variation 13.4 % (11.7-14.2); RDW Standard Deviation 50.7 fL (35.1-46.3); Red Blood Cell Count 2.61 M/mm3 (3.80-5.20); White Blood Cell Count 5.17 K/mm3 (4.00-11.30)
[2023-04-08 06:13] LABS: Bun/Creatinine Ratio 22.1 (12.0-20.0); Calcium, Blood 8.4 mg/dL (8.5-10.1); Creatinine, Blood 1.22 mg/dL (0.40-1.00); Potassium, Blood 4.2 mmol/L (3.5-5.5)
--- NOTE | 2023-04-08 06:17 | NUR ---
SHIFT SUMMARY PATIENT ALERT AND ORIENTED X4. CONTINUES TO BE HYPOTENSIVE WITH MOST RECENT SBP OF 95. PATIENT ASYMPTOMATIC. ON 2 LITERS O2 VIA NC. DENIES CHEST PAIN OR SHORTNESS OF BREATH. WILL CONTINUE TO MONITOR. CALL LIGHT WITHIN REACH.
--- NOTE | 2023-04-08 18:35 | NUR ---
RN CALLED DR. CURIEL AND INFORMED HER OF PT'S INCREASING [phone]. MD GAVE VERBAL TO ORDER 5MG IV METOPROLOL PUSH NOW X1. RN INFORMED MD OF PT'S LM=[id number]/88. PT IS ASYMPTOMATIC OF INCREASING HR.
--- NOTE | 2023-04-08 19:48 | NUR ---
SUMMARY- PT ASYMPTOMATIC TO TACHYCARDIA. 20 MINUTES AFTER 5MG METOPROLOL IV PUSH, PT PR=[id number]. HS RN NOTIFIED. PT AAOX4 TODAY. IRRITABLE BUT COOPERATIVE WITH CARE. X1 ASSIST TO CHAIR. PT DENIED PAIN THIS SHIFT.
[2023-04-09 00:44] VITALS: BP 102/77
--- NOTE | 2023-04-09 04:01 | NUR ---
SHIFT SUMMARY A/OX4, 2 L NC, WAS SITTING IN 130'S, CAME DOWN TO 110-120 AFTER PRN IV METOPROLOL AND SCHEDULED PO METOPROLOL WAS GIVEN. BLOOD PRESSURE RETAKEN PRIOR TO PO DOSE AND WNL. PUREWICK IN USE, NO BM OVERNIGHT.
[2023-04-09 05:47] VITALS: BP 126/75
[2023-04-09 08:11] VITALS: BP 115/75
[2023-04-09 17:32] LABS: Hematocrit 31.1 % (33.0-51.0); Hemoglobin 10.1 g/dL (11.5-16.0)
[2023-04-09 20:31] VITALS: BP 105/91
--- NOTE | 2023-04-09 21:05 | NUR ---
PATIENT TELEMETRY 140-'S TO BRIEF 160'S AT REST. MD NOTIFIED. ORDER RECEIVED TO DECREASE INTERVAL ON IV LOPRESSOR TO EVERY 4 HOURS NEEDED FOR RATE > THAN 120. 150MG ORAL METOPROLOL GIVEN PER HS ORDER. MD ALSO INFORMED OF BP 105/91 AT TIME OF ADMINISTRATION. WILL CONTINUE CLOSE MONITORING AND NOTIFY MD IF NO CHANGE IN RATE.
[2023-04-09 22:18] VITALS: BP 125/105
[2023-04-10] VITALS (7 sets, daily range): BP systolic 100–112; BP diastolic 71–87
--- NOTE | 2023-04-10 | NUR ---
at 2300, this RN contacted hospitalist to notify that there was no change in HR or Rhythm (still 140's with BP of 125/105) at rest. patient is becoming SOB and uncomfortable. Order to move patient to PCU to be placed on a Cardizem GTT received. Awaiting bed in Progressive Care Unit. Will continue close monitoring.
--- NOTE | 2023-04-10 01:53 | NUR ---
arrival to pcu patient arrived to pcu via bed and swapped beds. patient to pcu due to heart rate in the 140s and being started on cardizem drip. patient is alert and oriented x4. vital signs stable. tele afib 130-140. patient reports no chest pain/pressure, shortness of breath or pain. patient started on cardizem at 5 and after 15mins was increased to rate of 10mls/hr. this rn called jo vega to update her on patient condition and new room. plan of care is up to date.
[2023-04-10 04:27] LABS: BASOPHILS ABSOLUTE AUTO 0.01 K/mm3 (0.00-0.23); BASOPHILS PERCENT AUTO 0 % (0-2); EOSINOPHILS PERCENT AUTO 0 % (0-6); Hematocrit 28.4 % (33.0-51.0); Hemoglobin 9.4 g/dL (11.5-16.0); IMMATURE GRAN ABSOLUTE AUTO 0.07 K/mm3 (0.00-0.10); IMMATURE GRAN PERCENT AUTO 1 % (0-1); LYMPHOCYTES ABSOLUTE AUTO 0.64 K/mm3 (0.84-5.20); LYMPHOCYTES PERCENT AUTO 5 % (21-46); MONOCYTES ABSOLUTE AUTO 0.24 K/mm3 (0.16-1.47); MONOCYTES PERCENT AUTO 2 % (4-13); Mean Corpuscular HGB 34.4 pg (26.0-34.0); Mean Corpuscular HGB Conc 33.1 g/dL (31.5-36.5); Mean Corpuscular Volume 104 fL (80-100); Mean Platelet Volume 11.9 fL (9.1-12.4); NEUTROPHILS ABSOLUTE AUTO 12.46 K/mm3 (1.96-9.15); NEUTROPHILS PERCENT AUTO 93 % (41-73); Platelet Count 134 K/mm3 (150-400); RDW Coefficient Variation 13.8 % (11.7-14.2); RDW Standard Deviation 50.1 fL (35.1-46.3); Red Blood Cell Count 2.73 M/mm3 (3.80-5.20); White Blood Cell Count 13.42 K/mm3 (4.00-11.30)
[2023-04-10 04:48] LABS: Albumin, Blood 2.5 g/dL (3.4-5.0); Anion Gap 6 mmol/L (6-16); Blood Urea Nitrogen 41 mg/dL (8-24); Bun/Creatinine Ratio 33.9 (12.0-20.0); CO2, Blood 26 mmol/L (21-32); Calcium, Blood 8.9 mg/dL (8.5-10.1); Chloride, Blood 108 mmol/L (98-108); Creatinine, Blood 1.21 mg/dL (0.40-1.00); Glomerular Filtration Rate 46 (60-); Glucose, Blood 169 mg/dL (70-99); Magnesium, Blood 1.9 mg/dL (1.6-2.4); Phosphorus, Blood 3.1 mg/dL (2.5-4.9); Potassium, Blood 4.2 mmol/L (3.5-5.5); Sodium, Blood 140 mmol/L (136-145)
--- NOTE | 2023-04-10 06:19 | NUR ---
shift summary mandy remains in afib in the 70-80s. cardizem is at 5mls/hr. no acute changes. vital stable. patient calls appropriately and is able to make needs known. plan of care remains up to date
--- NOTE | 2023-04-10 18:47 | NUR ---
Shift Summary Pt a&ox4; forgetful at times. Up with 1 perosn assist with walker. Pt denies pain, chest pain/pressure, sob, nausea, dizziness and numb/tingling. Tele afib 90-110's, occasionally touching 120-140's, titrated cardizem gtt to 10 for a short time, then back down to 5. Spo2 >90% on 2l o2 via nc, titrated to room air this afternoon. Other vss. No other acute changes noted. Will continue to monitor.
[2023-04-11] VITALS (8 sets, daily range): BP systolic 102–129; BP diastolic 81–96
[2023-04-11 06:18] LABS: BASOPHILS ABSOLUTE AUTO 0.01 K/mm3 (0.00-0.23); BASOPHILS PERCENT AUTO 0 % (0-2); EOSINOPHILS PERCENT AUTO 0 % (0-6); Hematocrit 28.3 % (33.0-51.0); Hemoglobin 9.4 g/dL (11.5-16.0); IMMATURE GRAN ABSOLUTE AUTO 0.05 K/mm3 (0.00-0.10); IMMATURE GRAN PERCENT AUTO 0 % (0-1); LYMPHOCYTES ABSOLUTE AUTO 0.57 K/mm3 (0.84-5.20); LYMPHOCYTES PERCENT AUTO 4 % (21-46); MONOCYTES ABSOLUTE AUTO 0.25 K/mm3 (0.16-1.47); MONOCYTES PERCENT AUTO 2 % (4-13); Mean Corpuscular HGB 34.7 pg (26.0-34.0); Mean Corpuscular HGB Conc 33.2 g/dL (31.5-36.5); Mean Corpuscular Volume 104 fL (80-100); Mean Platelet Volume 11.8 fL (9.1-12.4); NEUTROPHILS ABSOLUTE AUTO 12.53 K/mm3 (1.96-9.15); NEUTROPHILS PERCENT AUTO 93 % (41-73); Platelet Count 139 K/mm3 (150-400); RDW Coefficient Variation 14.3 % (11.7-14.2); RDW Standard Deviation 52.5 fL (35.1-46.3); Red Blood Cell Count 2.71 M/mm3 (3.80-5.20); White Blood Cell Count 13.41 K/mm3 (4.00-11.30)
[2023-04-11 06:42] LABS: Albumin, Blood 2.6 g/dL (3.4-5.0); Anion Gap 8 mmol/L (6-16); Blood Urea Nitrogen 50 mg/dL (8-24); Bun/Creatinine Ratio 41.3 (12.0-20.0); CO2, Blood 25 mmol/L (21-32); Chloride, Blood 108 mmol/L (98-108); Creatinine, Blood 1.21 mg/dL (0.40-1.00); Glomerular Filtration Rate 46 (60-); Glucose, Blood 155 mg/dL (70-99); Phosphorus, Blood 3.1 mg/dL (2.5-4.9); Potassium, Blood 4.1 mmol/L (3.5-5.5); Sodium, Blood 141 mmol/L (136-145)
--- NOTE | 2023-04-11 06:51 | NUR ---
SHIFT SUMMARY A/Ox4 AND COOPERATIVE WITH CARE. ANSWERS QUESTIONS APPROPRIATELY AND ABLE TO MAKE HER NEEDS KNOWN. CAN BE VERY TALKATIVE AND OCCASIONALLY ANXIOUS AT TIMES. CARDIAC, REMAINS IN AFIB 80-120's WITH NO REPORTS OF CP OR PRESSURE T/O THE NIGHT. WAS ABLE TO GIVE PT HER PO CARDIZEM WELL TOPROL XL. ~2300 IN THE SHIFT, HR STARTED TRENDING INTO THE 130's AND INTERMITTENTLY TOUCHING 140's. RESTARTED CARDIZEM gtt FOR RATE CONTROL. Gtt WAS ABLE TO BE TITRATED OFF EARLY THIS AM. SBP HAS BEEN STABLE RANGING 100's. RESPIRATORY, MAINTAINS SPO2 >90% ON RA WITH NO REPORTS OF SOB OR DYSPNEA WHILE AT REST. GI/, ABLE TO AMBULATE WITH 1 STAFF ASSIST TO THE BSC, BUT CONTINUES TO VOID INTO ATTENDS WITHOUT CALLING FOR BATHROOM ASSISTANCE. PT EDUCATED ON NEED TO CALL FOR HELP THE BATHROOM WELL INCREASED RISK OF SKIN BREAKDOWN/DECONDITIONING. CONTINUES TO HAVE RUNNY BM's. ASSESSED PT FOR RISKS OF ANY IGNITION SOURCES WELL BEHAVIORS FOR INCREASED RISKS OF FIRE DANGER. PT EDUCATED ON COMMON SOURCES OF IGNITION WELL NEED TO KEEP A SAFE ENVIRONMENT. PT VOICED UNDERSTANDING. NO NEW ORDERS AT THIS TIME, WILL REPORT TO ONCOMING RN. SHERRIE ACOSTA OF THIS NOTE
[2023-04-12 03:17] VITALS: BP 127/91
[2023-04-12 04:02] LABS: BASOPHILS PERCENT AUTO 0 % (0-2); EOSINOPHILS PERCENT AUTO 0 % (0-6); Hematocrit 29.2 % (33.0-51.0); Hemoglobin 9.4 g/dL (11.5-16.0); IMMATURE GRAN ABSOLUTE AUTO 0.07 K/mm3 (0.00-0.10); IMMATURE GRAN PERCENT AUTO 1 % (0-1); LYMPHOCYTES ABSOLUTE AUTO 0.53 K/mm3 (0.84-5.20); LYMPHOCYTES PERCENT AUTO 5 % (21-46); MONOCYTES ABSOLUTE AUTO 0.34 K/mm3 (0.16-1.47); MONOCYTES PERCENT AUTO 4 % (4-13); Mean Corpuscular HGB 33.8 pg (26.0-34.0); Mean Corpuscular HGB Conc 32.2 g/dL (31.5-36.5); Mean Corpuscular Volume 105 fL (80-100); NEUTROPHILS ABSOLUTE AUTO 8.79 K/mm3 (1.96-9.15); NEUTROPHILS PERCENT AUTO 90 % (41-73); Platelet Count 131 K/mm3 (150-400); RDW Coefficient Variation 14.6 % (11.7-14.2); Red Blood Cell Count 2.78 M/mm3 (3.80-5.20); White Blood Cell Count 9.73 K/mm3 (4.00-11.30)
[2023-04-12 04:19] LABS: Albumin, Blood 2.6 g/dL (3.4-5.0); Anion Gap 5 mmol/L (6-16); Blood Urea Nitrogen 56 mg/dL (8-24); Bun/Creatinine Ratio 45.9 (12.0-20.0); CO2, Blood 28 mmol/L (21-32); Chloride, Blood 109 mmol/L (98-108); Creatinine, Blood 1.22 mg/dL (0.40-1.00); Glomerular Filtration Rate 46 (60-); Glucose, Blood 151 mg/dL (70-99); Phosphorus, Blood 2.7 mg/dL (2.5-4.9); Potassium, Blood 3.9 mmol/L (3.5-5.5); Sodium, Blood 142 mmol/L (136-145)
--- NOTE | 2023-04-12 05:24 | NUR ---
SHIFT SUMMARY A/Ox4 AND COOPERATIVE WITH CARE. ANSWERS QUESTIONS APPROPRIATELY AND ABLE TO MAKE HER NEEDS KNOWN. CONTINUES TO BE VERY TALKATIVE, BUT CAN ANXIOUS AT TIMES. CARDIAC, REMAINS IN AFIB 90-110'S WITH NO REPORTS OF CP OR PRESSURE T/O THE NIGHT. PO CARDIZEM DOSE WAS INCREASED ON , BUT ~0000 IN THE SHIFT, HR STARTED TRENDING INTO THE 130'S. RESTARTED CARDIZEM gtt FOR RATE CONTROL. Gtt WAS ABLE TO BE TITRATED OFF EARLY THIS AM. SBP HAS BEEN STABLE RANGING 100-120'S.RESPIRATORY, MAINTAINS SPO2 >90% ON RA WITH NO REPORTS OF SOB OR DYSPNEA WHILE AT REST. GI/, ABLE TO AMBULATE WITH 1 STAFF ASSIST TO THE BSC. 1 BM THIS SHIFT. PAIN MANAGED WELL PER EMAR ASSESSED PT FOR RISKS OF ANY IGNITION SOURCES WELL BEHAVIORS FOR INCREASED RISKS OF FIRE DANGER. PT EDUCATED ON COMMON SOURCES OF IGNITION WELL NEED TO KEEP A SAFE ENVIRONMENT. PT VOICED UNDERSTANDING. NO NEW ORDERS AT THIS TIME, WILL REPORT TO ONCOMING RN. SHERRIE ACOSTA OF THIS NOTE
[2023-04-12 07:19] VITALS: BP 118/87
[2023-04-12 11:17] VITALS: BP 133/93
[2023-04-12 16:01] VITALS: BP 124/84
--- NOTE | 2023-04-12 17:46 | NUR ---
SHIFT SUMMARY: PT IS A/OX4 AND COOPERATIVE WITH CARE. SHE IS A 1 PERSON SBA WITH A FWW TO THE BSC OR CHAIR. HER HR HAS BEEN MORE CONTROLLED WITH THE INCREASE IN CARDIZEM. PT MEDICATED PER EMAR. PT CONTINUES TO HAVE LOOSE STOOLS, STOOL SOFTENERS WERE DC'D. VITAL SIGNS STABLE THROUGHOUT MY SHIFT. PT HAS BEEN ANXIOUS THIS AFTERNOON AND MEDICATED PER MAR FOR ANXIETY. PT'S [id number] "EMMANUEL" WOULD LIKE TO BE UPDATED CHANGES IN PLAN OF CARE ARISE.
[2023-04-12 19:47] VITALS: BP 130/102
[2023-04-12 23:49] VITALS: BP 115/99
[2023-04-13 03:26] VITALS: BP 118/95
[2023-04-13 03:54] LABS: BASOPHILS ABSOLUTE AUTO 0.01 K/mm3 (0.00-0.23); BASOPHILS PERCENT AUTO 0 % (0-2); EOSINOPHILS PERCENT AUTO 0 % (0-6); Hematocrit 30.5 % (33.0-51.0); Hemoglobin 10.1 g/dL (11.5-16.0); IMMATURE GRAN ABSOLUTE AUTO 0.06 K/mm3 (0.00-0.10); IMMATURE GRAN PERCENT AUTO 1 % (0-1); LYMPHOCYTES ABSOLUTE AUTO 0.79 K/mm3 (0.84-5.20); LYMPHOCYTES PERCENT AUTO 8 % (21-46); MONOCYTES ABSOLUTE AUTO 0.71 K/mm3 (0.16-1.47); MONOCYTES PERCENT AUTO 7 % (4-13); Mean Corpuscular HGB 35.1 pg (26.0-34.0); Mean Corpuscular HGB Conc 33.1 g/dL (31.5-36.5); Mean Corpuscular Volume 106 fL (80-100); Mean Platelet Volume 11.7 fL (9.1-12.4); NEUTROPHILS ABSOLUTE AUTO 8.55 K/mm3 (1.96-9.15); NEUTROPHILS PERCENT AUTO 85 % (41-73); Platelet Count 154 K/mm3 (150-400); RDW Coefficient Variation 14.7 % (11.7-14.2); RDW Standard Deviation 55.5 fL (35.1-46.3); Red Blood Cell Count 2.88 M/mm3 (3.80-5.20); White Blood Cell Count 10.12 K/mm3 (4.00-11.30)
[2023-04-13 04:25] LABS: Albumin, Blood 2.6 g/dL (3.4-5.0); Anion Gap 5 mmol/L (6-16); Blood Urea Nitrogen 53 mg/dL (8-24); Bun/Creatinine Ratio 44.5 (12.0-20.0); CO2, Blood 28 mmol/L (21-32); Calcium, Blood 8.9 mg/dL (8.5-10.1); Chloride, Blood 108 mmol/L (98-108); Creatinine, Blood 1.19 mg/dL (0.40-1.00); Glomerular Filtration Rate 47 (60-); Glucose, Blood 131 mg/dL (70-99); Phosphorus, Blood 3.5 mg/dL (2.5-4.9); Potassium, Blood 4.4 mmol/L (3.5-5.5); Sodium, Blood 141 mmol/L (136-145)
--- NOTE | 2023-04-13 04:59 | NUR ---
SHIFT SUMMARY PT A&Ox4, CALLS AND COMMUNICATES NEEDS APPROPRIATELY. HAS ODD STATEMENTS AND IS SLIGHTLY FORGETFUL AT TIMES. BP STABLE, AFIB 90-120's, DENIES CP/PRESSURE. SpO2> 92% RA, DENIES SOB. SBA TO BSC. PT CONTINENT OF BOTH URINE AND BOWEL. Q2 TURNS PROVIDED. NO OTHER EVENTS, WILL REPORT TO ONCOMING RN.
[2023-04-13 07:47] VITALS: BP 113/83
[2023-04-13 11:51] VITALS: BP 127/93
[2023-04-13 16:01] VITALS: BP 128/84
--- NOTE | 2023-04-13 18:20 | NUR ---
SHIFT SUMMARY; ASSUMED CARE AT 0700, A/A/OX3. MOVES SELF ON GURNEY AND USES BSC WITH STANDBY ASSIST. WORKED WITH PT/OT TODAY. HR SINUS 115-130 DURING SHIFT, DENIES CPOR SOB, STARTED ON DIG THIS EVENING PER ORDERS. SITS AT SIDE OF BED FOR MEALS WITHOUT DIFFICULTY. HR AND SATS STABLE, NO ACUTE CHANGES, WILL CONTINUE TO MONITOR AND TREAT UNTIL REPORT GIVEN TO ONCOMING NOC SHIFT RN.
[2023-04-13 20:21] VITALS: BP 129/98
[2023-04-13 23:18] VITALS: BP 135/108
[2023-04-14 03:54] VITALS: BP 121/88
[2023-04-14 04:10] LABS: BASOPHILS PERCENT AUTO 0 % (0-2); EOSINOPHILS ABSOLUTE AUTO 0.03 K/mm3 (0.00-0.68); EOSINOPHILS PERCENT AUTO 0 % (0-6); Hemoglobin 9.4 g/dL (11.5-16.0); IMMATURE GRAN ABSOLUTE AUTO 0.05 K/mm3 (0.00-0.10); IMMATURE GRAN PERCENT AUTO 1 % (0-1); LYMPHOCYTES ABSOLUTE AUTO 0.61 K/mm3 (0.84-5.20); LYMPHOCYTES PERCENT AUTO 9 % (21-46); MONOCYTES ABSOLUTE AUTO 0.54 K/mm3 (0.16-1.47); MONOCYTES PERCENT AUTO 8 % (4-13); Mean Corpuscular HGB 34.9 pg (26.0-34.0); Mean Corpuscular HGB Conc 32.4 g/dL (31.5-36.5); Mean Corpuscular Volume 108 fL (80-100); Mean Platelet Volume 11.5 fL (9.1-12.4); NEUTROPHILS ABSOLUTE AUTO 5.52 K/mm3 (1.96-9.15); NEUTROPHILS PERCENT AUTO 82 % (41-73); NRBC ABSOLUTE 0.03 K/mm3 (0.00-0.02); NRBC Auto 0.4 /100 WBC (0.0-0.2); Platelet Count 135 K/mm3 (150-400); RDW Coefficient Variation 14.9 % (11.7-14.2); RDW Standard Deviation 56.7 fL (35.1-46.3); Red Blood Cell Count 2.69 M/mm3 (3.80-5.20); White Blood Cell Count 6.75 K/mm3 (4.00-11.30)
[2023-04-14 04:34] LABS: Albumin, Blood 2.4 g/dL (3.4-5.0); Anion Gap 2 mmol/L (6-16); Blood Urea Nitrogen 52 mg/dL (8-24); Bun/Creatinine Ratio 40.6 (12.0-20.0); CO2, Blood 31 mmol/L (21-32); Calcium, Blood 8.5 mg/dL (8.5-10.1); Chloride, Blood 109 mmol/L (98-108); Creatinine, Blood 1.28 mg/dL (0.40-1.00); Glomerular Filtration Rate 43 (60-); Glucose, Blood 116 mg/dL (70-99); Phosphorus, Blood 2.7 mg/dL (2.5-4.9); Potassium, Blood 4.3 mmol/L (3.5-5.5); Sodium, Blood 142 mmol/L (136-145)
--- NOTE | 2023-04-14 05:46 | NUR ---
SHIFT SUMMARY PT A&Ox4, CALLS AND COMMUNICATES NEEDS APPROPRIATELY. HAS ODD STATEMENTS AND IS SLIGHTLY FORGETFUL AT TIMES. BP STABLE, AFIB 70-110's, DENIES CP/PRESSURE. SpO2> 92% RA, DENIES SOB. SBA TO BSC. PT CONTINENT OF BOTH URINE AND BOWEL. Q2 TURNS PROVIDED. NO OTHER EVENTS, WILL REPORT TO ONCOMING RN.
[2023-04-14 08:19] VITALS: BP 128/105
[2023-04-14 16:08] VITALS: BP 135/99
--- NOTE | 2023-04-14 18:00 | NUR ---
SHIFT SUMMARY; ASSUMED CARE AT 0700. A/A/OX3 DURING SHIFT. REPOSITIONS SELF ON GURNEY, [place]BA [place] [facility] [place]. PLEASANT AND COOPERATIVE WITH CARE. HR 100-120 T/O SHIFT, DISCUSSED WITH DR. RODRIGUEZ, DIGOXIN TO BE ORDERED FOR TONIGHT. NO ACUTE CHANGES WILL CONTINUE TO MONITOR AND TREAT UNTIL CHANGE OF SHIFT.
[2023-04-14 20:43] VITALS: BP 134/99
[2023-04-14 23:32] VITALS: BP 129/91
[2023-04-15 04:04] VITALS: BP 121/90
[2023-04-15 04:22] LABS: BASOPHILS ABSOLUTE AUTO 0.01 K/mm3 (0.00-0.23); BASOPHILS PERCENT AUTO 0 % (0-2); EOSINOPHILS PERCENT AUTO 3 % (0-6); Hematocrit 30.3 % (33.0-51.0); Hemoglobin 9.7 g/dL (11.5-16.0); IMMATURE GRAN PERCENT AUTO 1 % (0-1); LYMPHOCYTES ABSOLUTE AUTO 0.52 K/mm3 (0.84-5.20); LYMPHOCYTES PERCENT AUTO 7 % (21-46); MONOCYTES ABSOLUTE AUTO 0.57 K/mm3 (0.16-1.47); MONOCYTES PERCENT AUTO 8 % (4-13); Mean Corpuscular HGB 34.4 pg (26.0-34.0); Mean Corpuscular Volume 107 fL (80-100); Mean Platelet Volume 11.6 fL (9.1-12.4); NEUTROPHILS ABSOLUTE AUTO 6.23 K/mm3 (1.96-9.15); NEUTROPHILS PERCENT AUTO 82 % (41-73); NRBC ABSOLUTE 0.03 K/mm3 (0.00-0.02); NRBC Auto 0.4 /100 WBC (0.0-0.2); Platelet Count 145 K/mm3 (150-400); RDW Standard Deviation 56.9 fL (35.1-46.3); Red Blood Cell Count 2.82 M/mm3 (3.80-5.20); White Blood Cell Count 7.63 K/mm3 (4.00-11.30)
[2023-04-15 05:03] LABS: Albumin, Blood 2.4 g/dL (3.4-5.0); Anion Gap 4 mmol/L (6-16); Blood Urea Nitrogen 40 mg/dL (8-24); Bun/Creatinine Ratio 33.9 (12.0-20.0); CO2, Blood 29 mmol/L (21-32); Calcium, Blood 8.8 mg/dL (8.5-10.1); Chloride, Blood 110 mmol/L (98-108); Creatinine, Blood 1.18 mg/dL (0.40-1.00); Digoxin (Lanoxin) 1.24 ug/mL (0.80-2.00); Glomerular Filtration Rate 48 (60-); Glucose, Blood 105 mg/dL (70-99); Phosphorus, Blood 2.6 mg/dL (2.5-4.9); Potassium, Blood 4.4 mmol/L (3.5-5.5); Sodium, Blood 143 mmol/L (136-145)
[2023-04-15 08:21] VITALS: BP 111/95
[2023-04-15 12:07] VITALS: BP 123/96
[2023-04-15] MEDS ORDERED: ELIQUIS5 M2 PO (13:54)
[2023-04-15] MEDS ORDERED: ATIVAN0.5 MG PO (13:55)
[2023-04-15] MEDS ORDERED: Prednisone10 MG PO (13:56)
[2023-04-15] MEDS ORDERED: Acetaminophen650 M1 PO (13:58)
[2023-04-15] MEDS ORDERED: DIGOX125 MC1 PO (13:59)
[2023-04-15] MEDS ORDERED: BUDESONIDE1 MG/2 M1 INH (13:59)
[2023-04-15] MEDS ORDERED: ALBU2.5V5 INH (13:59)
[2023-04-15] MEDS ORDERED: DILT120 PO (14:00)
--- NOTE | 2023-04-15 16:09 | NUR ---
DISCHARGE SUMMARY ALERT, ORIENTED, PLEASANT, COOPERATIVE. ROOM AIR. TELE AFIB RVR WITH RATE 100-110'S. OTHER VSS. PO CARDIAC MEDS DILTIAZEM, METOPROLOL, AND DIGOXIN. RATE IMPROVED TO 70-90'S BY AFTERNOON. WEAK, SBA WITH FWW UP TO RECLINER OR BSC. DISCHARGE TO SNF ORDER PLACED. REPORT CALLED TO [facility] RN. TOLERATING DIET AND LIQUIDS. SPOUSE AND SON TO VISIT DURING AM. REPORT GIVEN TO CINDI TAVARES RN. PATIENT SCHEDULED TO TRANSPORT AT [phone].
[2023-04-15 16:12] VITALS: BP 134/94
--- NOTE | 2023-04-15 16:33 | NUR ---
ASSUMED CARE THIS RN ASSUMED CARE OF PT AT 1540. PT ALERT AND ORIENTED, PLEASANT AND COOPERATIVE WITH CARE PROVIDED. VSS AT TIME OF TRANSFER. SEE PREVIOUS DISCHARGE SUMMARY FOR FURTHER DETAILS. POWERGLIDE REMOVED BY THIS RN, CATHETER TIP INTACT AND TOLERATED WELL BY PT. STAFF ASSISTANCE WITH DRESSING FOR DISCHARGE. TELEMETRY REMOVED. PT REPORTS 8/10 PAIN, MEDICATED PER EMAR. ANTICIPATING DISCHARGE TO [facility] AT [phone].
--- NOTE | 2023-04-15 17:42 | NUR ---
DISCHARGE PT DISCHARGED FROM [facility] AT 1735. NO ACUTE CHANGES SINCE PREVIOUS NOTE. ALL PAPERWORK SENT WITH MEDICAL TRANSPORTER.
== END 2023-04-15 17:39 | DRG 177 ==
LOC: ER 19:27 → PCU 03-27 00:54 → MEDS 03-27 00:54 → PCU 03-27 01:43 → MEDS 04-02 14:51 → PCU 04-10 01:05
PROVIDERS: Emergency Medicine; Family Medicine; Hospitalist; Internal Medicine; ADMIT Student in an Organized Health Care Education/Training Program
PROC: XW033E5 Introduction of Remdesivir Anti-infective into Peripheral Vein, Percutaneous Approach, New Technology Group 5 (ICD-10-PCS; principal; 2023-03-27)
PROC: 3E0DX3Z Introduction of Anti-inflammatory into Mouth and Pharynx, External Approach (ICD-10-PCS; 2023-03-27)
PROC: XW0DXM6 Introduction of Baricitinib into Mouth and Pharynx, External Approach, New Technology Group 6 (ICD-10-PCS; 2023-03-27)
PROC: 8E0ZXY6 Isolation (ICD-10-PCS; 2023-03-27)
DX: U07.1 COVID-19 (principal); J12.82 Pneumonia due to coronavirus disease 2019; J96.01 Acute respiratory failure with hypoxia; N17.9 Acute kidney failure, unspecified; I48.20 Chronic atrial fibrillation, unspecified; D69.6 Thrombocytopenia, unspecified; R29.6 Repeated falls; K52.9 Noninfective gastroenteritis and colitis, unspecified; E86.0 Dehydration; I12.9 Hypertensive chronic kidney disease with stage 1 through stage 4 chronic kidney disease, or unspecified chronic kidney disease; N18.30 Chronic kidney disease, stage 3 unspecified; R73.9 Hyperglycemia, unspecified; E83.42 Hypomagnesemia; F41.9 Anxiety disorder, unspecified; D63.1 Anemia in chronic kidney disease; Z88.8 Allergy status to other drugs, medicaments and biological substances; Z91.018 Allergy to other foods; Z79.899 Other long term (current) drug therapy; Z79.2 Long term (current) use of antibiotics; Z79.891 Long term (current) use of opiate analgesic; Z98.890 Other specified postprocedural states; Z90.49 Acquired absence of other specified parts of digestive tract; Z87.891 Personal history of nicotine dependence
CPT/HCPCS: 36415; 71045; 80048; 80053; 80069; 80162; 81003; 82550; 82607; 82746; 83735; 84443; 84484; 85014; 85018; 85025; 85027; 85520; 85610; 87507; 93005; 93010; 93306; 94640; 94760; 94762; 96365; 97110; 97110-CQ; 97162; 97165; 97530; 97535; 99285-25; A9270; G0008; J0248; J1644; J2543; J2930; J3475; J7030; J7040; J7050; J7512; J7626; Q2036; U0002